=== PATIENT | male | born 1990 | race African-American/Black ===

== ENCOUNTER 2022-06-19 22:04 | Emergency (ER) | payer BC ==
[2022-06-19 22:09] VITALS: BP 156/87; PULSE 84; RESP 16; TEMP 98.2
--- NOTE | 2022-06-19 23:03 | ED ---
Skin/Abscess/FB HPI - General Chief complaint: Skin/Abscess/Foreign Body Stated complaint: Rash on back and stomach Time Seen by Provider: 06/19/22 22:16 Source: patient Mode of arrival: ambulatory Limitations: no limitations - History of Present Illness Initial comments: Patient is a 31-year-old female presenting with chief complaint of rash. Patient states that rest been present for the last 3 days. It is primarily on the trunk and the proximal portion of the arms. Mainly flesh-colored with some hyperpigmentation, small raised papules. Rash is not painful or pruritic. No difficulty breathing or swallowing. No new foods, medications, or topical products. No URI like symptoms. No abdominal pain, nausea, vomiting. No chest pain - Related Data Allergies Allergy/AdvReac Type Severity Reaction Status Date / Time shellfish derived [Shellfish] Allergy Swelling Verified 06/19/22 22:09 Review of Systems ROS Statement: Those systems with pertinent positive or pertinent negative responses have been documented in the HPI. ROS Other: All systems not noted in ROS Statement are negative. Past Medical History Past Medical History: No Reported History History of Any Multi-Drug Resistant Organisms: None Reported Past Surgical History: No Surgical Hx Reported Smoking Status: Never smoker Past Alcohol Use History: None Reported Past Drug Use History: None Reported General Exam Limitations: no limitations General appearance: alert, in no apparent distress Head exam: Present: atraumatic, normocephalic, normal inspection Eye exam: Present: normal appearance, EOMI. Absent: scleral icterus, periorbital swelling ENT exam: Present: normal oropharynx, mucous membranes moist Neck exam: Present: normal inspection Respiratory exam: Present: normal lung sounds bilaterally. Absent: respiratory distress, wheezes, rales, rhonchi, stridor Cardiovascular Exam: Present: regular rate, normal rhythm, normal heart sounds. Absent: systolic murmur, diastolic murmur, rubs, gallop, clicks Neurological exam: Present: alert, oriented X3, CN II-XII intact Psychiatric exam: Present: normal affect, normal mood Skin exam: Present: rash (Flesh-colored and hyperpigmented papules present to the trunk and proximal extremities) Course Vital Signs 06/19/22 22:07 Temperature 98.2 F Pulse Rate 84 Respiratory 16 Rate Blood Pressure 156/87 O2 Sat by Pulse 98 Oximetry Medical Decision Making - Medical Decision Making Was pt. sent in by a medical professional or institution ([facility], [facility] [employer] [employer], urgent care, hospital, or group home...) When possible be specific @ -No Did you speak to anyone other than the patient for history (EMS, parent, family, police, friend...)? What history was obtained from this source @ -No Did you review nursing and triage notes (agree or disagree)? Why? @ -I reviewed and agree with nursing and triage notes Were old charts reviewed (outside hosp., previous admission, EMS record, old EKG, old radiological studies, urgent care reports/EKG's, group home records)? Report findings @ -No old charts were reviewed Differential Diagnosis (chest pain, altered mental status, abdominal pain women, abdominal pain men, vaginal bleeding, weakness, fever, dyspnea, syncope, headache, dizziness, GI bleed, back pain, seizure, CVA, palpatations, mental health, musculoskeletal)? @ -Differential includes urticaria, keratosis pilaris, ALLERGIC reaction, this not an all-inclusive list EKG interpreted by me (3pts min.). @ -As above X-rays interpreted by me (1pt min.). @ -None done CT interpreted by me (1pt min.). @ -None done U/S interpreted by me (1pt. min.). @ -None done What testing was considered but not performed or refused? (CT, X-rays, U/S, labs)? Why? @ -None What meds were considered but not given or refused? Why? @ -None Did you discuss the management of the patient with other professionals (professionals i.e. [facility], [facility], lab, RT, psych nurse, social worker psychiatric, parasitologist, teacher, chief compliance officer, rifle case repairer)? Give summary @ -No Was smoking cessation discussed for >3mins.? @ -No Was critical care preformed (if so, how long)? @ -No Were there social determinants of health that impacted care today? How? (Homelessness, low income, unemployed, alcoholism, drug addiction, transportation, low edu. Level, literacy, decrease access to med. care, [facility], rehab)? @ -No Was there de-escalation of care discussed even if they declined (Discuss DNR or withdrawal of care, Hospice)? DNR status @ -No What co-morbidities impacted this encounter? (DM, HTN, Smoking, COPD, CAD, Cancer, CVA, ARF, Chemo, Hep., AIDS, mental health diagnosis, sleep apnea, morbid obesity)? @ -None Was patient admitted / discharged? Hospital course, mention meds given and route, prescriptions, significant lab abnormalities, going to OR and other pertinent info. @ -Discharge. This is a 31-year-old male presenting with chief complaint of rash. No difficulty breathing or swallowing. No new foods, medications, or topical products. On physical examination there are flesh-colored and hyper pigmented papules to the trunk and proximal extremities, no itching or pain. May be keratosis pilaris, educated patient on supportive treatment with exfoliation of moisturizing and instructed to follow-up with PCP. Follow-up with PCP. Report back to ER with any new or worsening symptoms. Discussed return parameters and answered all questions. Patient conveyed verbal understanding and agreed to the plan. I discussed this case in detail with my attending Dr. Schrader Undiagnosed new problem with uncertain prognosis? @ -No Drug Therapy requiring intensive monitoring for toxicity (Heparin, Nitro, Insulin, Cardizem)? @ -No Were any procedures done? @ -No Diagnosis/symptom? @ -keratosis pilaris Acute, or Chronic, or Acute on Chronic? @ -Acute Uncomplicated (without systemic symptoms) or Complicated (systemic symptoms)? @ -Uncomplicated Side effects of treatment? @ -No Exacerbation, Progression, or Severe Exacerbation? @ -No Poses a threat to life or bodily function? How? (Chest pain, [place], [place], pneumonia, PE, COPD, DKA, ARF, appy, cholecystitis, CVA, Diverticulitis, Homicidal, Suicidal, threat to staff... and all critical care pts) @ -No Disposition Clinical Impression: Keratosis pilaris Disposition: HOME SELF-CARE Condition: Good Instructions (If sedation given, give patient instructions): Acute Rash (ED) Additional Instructions: Follow-up with PCP, suggestion has been provided. Report back to ER with any new or worsening symptoms. Exfoliate and hydrate. Is patient prescribed a controlled substance at d/c from ED?: No Referrals: None,Stated [Primary Care Provider] - 1-2 days Hanna Swanson MD [STAFF PHYSICIAN] - 1-2 days Time of Disposition: 23:03
== END 2022-06-19 23:12 | disposition home or self-care (01) ==
LOC: EC 22:04
DX: L85.8 Other specified epidermal thickening (principal); Z91.013 Allergy to seafood
CPT/HCPCS: 99282

== ENCOUNTER 2023-10-18 17:32 | Emergency (ER) | payer BC ==
[2023-10-18] MEDS ORDERED: ACETAMINOPHEN TAB 325 MG TAB ONE (19:46)
[2023-10-18] MEDS ORDERED: DEXAMETHASONE SOD PHOSPHATE 10 MG/ML 1 ML VIAL ONE (19:46)
[2023-10-18] MEDS ORDERED: diphenhydrAMINE 50 MG/ML 1 ML VIAL ONE (19:46)
[2023-10-18] MEDS ORDERED: METOCLOPRAMIDE 5 MG/ML 2 ML VIAL ONE (19:46)
[2023-10-18] MEDS ORDERED: SODIUM CHLORIDE 0.9% 1,000 ML BAG ONE (20:16)
== END 2023-10-18 22:20 | disposition home or self-care (01) ==
LOC: EC 17:32
DX: R51.9 Headache, unspecified (principal)
CPT/HCPCS: 96361; 96374; 96375; 99283